=== PATIENT | male | born 1980 | race Caucasian/White ===

== ENCOUNTER 2024-04-28 12:46 | Emergency (ER) | payer OTHER, SELFPAY ==
[2024-04-28 12:54] VITALS: BP 138/93; PULSE 97; RESP 18; TEMP 36.9; O2SAT 96; BMI 27.0
--- NOTE | 2024-04-28 13:34 | XR_ITS ---
FINAL REPORT CLINICAL HISTORY: fall, injury pain in shoulder after fall COMPARISON: None FINDINGS: RIGHT SHOULDER: 3 views of the right shoulder were obtained. There is no acute fracture or dislocation. There is mild AC joint degenerative change. There is no soft tissue abnormality. IMPRESSION: No acute bony abnormality. Reviewed, Interpreted and Dictated by Brian Sosa III, MD Transcribed by Seda Augustin Authenticated and [facility]
--- NOTE | 2024-04-28 13:35 | HMH.EDGENADL ---
Discharge Plan Disposition Chief Complaint: PAIN Referrals Follow up/Referrals: Provider,Referral, [Primary Care Provider] - See instructions Clinical Impressions Clinical Impression: Injury of right shoulder Discharge ED Provider: Ramiro Ramos General Adult HPI General Chief complaint: PAIN Stated complaint: AO 1215 fall shoulder pain Time Seen by Provider: 04/28/24 13:29 Mode of Arrival: Ambulatory Source of Information: Patient Limitations: No Limitations Description of Symptoms (Recalled from ER Triage Doc. by RN): pt reports to ed c/o of right shoulder pain related to fall. pt states the pain is sharp and radiates to neck. pt states having a previous injury to right shoulder. Pt denies LOC History of Present Illness HPI narrative: Is a 43-year-old male present today with right shoulder injury. States his dog accidentally clipped his legs and he fell directly onto his right shoulder with his arm adducted. Pain is in the right shoulder no injuries elsewhere. Patient denies any syncope etc. Related Data Allergies Allergy/AdvReac Type Severity Reaction Status Date / Time meloxicam Allergy Verified 04/28/24 13:08 [facility] Disclaimer: The information contained in this section may have been updated after the patient was seen, as this information can be updated by other users. Social History Smoking Status: Current every day smoker alcohol intake: never current occupational status: other Travel in the last 8 weeks: None ROS Obtained: Yes All systems reviewed & no additional complaints except as documented Physical Exam General General appearance: alert and in no apparent distress Respiratory Respiratory exam: Present normal lung sounds bilaterally Cardiovascular Cardiovascular exam: Present regular rate and normal rhythm Extremities Exam Extremities exam: Present other (Right shoulder no significant soft tissue swelling there is tenderness on the anterior aspect of the shoulder itself normal range of motion but associated with pain axillary function is normal and sensorimotor function as well as median ulnar radial nerves) Neurological Exam Neurological exam: Present alert and oriented X3 Medical Decision Making Jus Inquiry Pt receiving controlled substance: No Vital Signs: 04/28/24 12:54 04/28/24 14:00 04/28/24 14:15 Temperature 98.4 F Temperature Source Oral Pulse Rate 77 78 Pulse Rate [Left Radial] 97 H Respiratory Rate 18 Blood Pressure 127/96 H 124/80 Blood Pressure [Right Arm] 138/93 H Blood Pressure Mean 106 94 Blood Pressure Mean [Right Arm] 108 02 Sat by Pulse Oximetry 96 94 L 92 L Oxygen Delivery Method Room Air Orders (Tests/Meds): ED MEDICATIONS Discontinued Medications Generic Name Dose Route Start Last Admin Trade Name Elza PRN Reason Stop Dose Admin Acetaminophen 1,000 mg 04/28/24 13:34 04/28/24 13:49 Acetaminophen 500mg Tab PO 04/28/24 13:35 1,000 mg ONCE ONE Administration Ibuprofen 800 mg 04/28/24 13:34 04/28/24 13:49 Ibuprofen 400 Mg Tablet PO 04/28/24 13:35 800 mg ONCE ONE Administration ORDERS Category Date Time Status Shoulder XR right miminum 2 views [XR shoulder RT min Exams 04/28/24 13:34 Taken 2V] Stat Medical Decision Narrative: 43-year-old presents today with a right shoulder injury after a fall. Tylenol and ibuprofen will be administered differential includes fracture dislocation separation, sprain etc. X-ray will be performed and will reassess. X-ray performed to person interpreted shows no evidence of a fracture dislocation or significant shoulder separation. He was offered a sling but declined this. He was advised to follow-up with orthopedic surgeon to take ibuprofen as needed and was discharged in stable condition. Critical Care Critical Care Time Critical Care Time: No
[2024-04-28] MEDS: ACETAMINOPHEN 500MG TAB 1000 MG PO (13:49)
[2024-04-28] MEDS: IBUPROFEN 400 MG TABLET 800 MG PO (13:49)
[2024-04-28 14:00] VITALS: BP 127/96; PULSE 77; O2SAT 94
[2024-04-28 14:15] VITALS: BP 124/80; PULSE 78; O2SAT 92
[2024-04-28 15:12] VITALS: BP 128/96; PULSE 89; RESP 18; TEMP 37; O2SAT 94
== END 2024-04-28 15:14 | disposition home or self-care (01) ==
PROVIDERS: Emergency Provider Student in an Organized Health Care Education/Training Program
DX: S49.91XA Unspecified injury of right shoulder and upper arm, initial encounter (principal); F17.210 Nicotine dependence, cigarettes, uncomplicated; W01.0XXA Fall on same level from slipping, tripping and stumbling without subsequent striking against object, initial encounter
CPT/HCPCS: 73030; 99283

== ENCOUNTER 2024-09-12 09:21 | Emergency (ER) | payer OTHER, SELFPAY ==
[2024-09-12 09:29] VITALS: BP 152/99; PULSE 81; RESP 16; TEMP 36.6; O2SAT 99; BMI 29.7
[2024-09-12] MEDS: METHYLPREDNISOLONE SOD SUCC 125MG VIAL 125 MG IM (09:38)
--- NOTE | 2024-09-12 09:39 | HMH.EDGENADL ---
Discharge Plan Disposition Patient Disposition: Home, Self-Care Prescriptions Prescriptions: New prednisone 10 mg tablet See Rx Instructions .ROUTE .COMPLEX Qty: 21 0RF Rx Instructions: Begin on September 13, 2024 : 40 mg daily days 1-3, 20 mg daily days 4-6, 10 mg daily days 7-9. Referrals Follow up/Referrals: Provider,Referral, [Primary Care Provider] - See instructions Activity Restrictions/Add. Instructions Additional Instructions/Restrictions: At this time it was felt you are safe to be discharged home. If new or worsening symptoms please do not hesitate to return the emergency department. Please take your medications as prescribed. Some people have success with oatmeal baths, cool wet compresses, ice packs, calamine lotion for symptomatic control. Clinical Impressions Clinical Impression: Contact dermatitis, Dermatitis due to plants, including poison ani, sumac, and oak Instructions Patient Instructions: DI for Skin Abscess Print Language Print Language: Georgian Discharge ED Provider: Michele Pat General Adult HPI General Chief complaint: Skin/Abscess/Foreign Body Stated complaint: swelling/redness/irritation in both eyes Time Seen by Provider: 09/12/24 09:24 Mode of Arrival: Ambulatory Source of Information: Patient Limitations: No Limitations Description of Symptoms (Recalled from ER Triage Doc. by RN): pt states he was weed eating Friday and thinks he got into poison oak. pt has periorbital edema and redness. History of Present Illness HPI narrative: Patient is a 43-year-old male without corrective vision who presents emergency department for evaluation of a rash. Patient was weed eating Friday when he believes he got into some poison oak or poison ani which she has experienced before. He rubbed his face and his lower abdomen went to the city which has resulted in a rash on these areas. No other acute complaints at this time. No reported vision changes. Related Data Previous Rx's ?Medication ?Instructions ?Recorded prednisone 10 mg tablet See Rx Instructions .Route 09/12/24 .COMPLEX #21 tabs Allergies Allergy/AdvReac Type Severity Reaction Status Date / Time meloxicam Allergy Other Verified 09/12/24 09:34 [facility] Disclaimer: The information contained in this section may have been updated after the patient was seen, as this information can be updated by other users. Social History (Updated 04/28/24 @ 14:54 by Ramiro Ramos MD) Smoking Status: Current every day smoker alcohol intake: never current occupational status: other Travel in the last 8 weeks: None ROS Obtained: Yes Systems reviewed as appropriate & no additional complaints except as documented Physical Exam General General appearance: alert and in no apparent distress Head Head exam: atraumatic, normocephalic and other (Mild periorbital edema bilaterally extending across his glabella with superimposed papules. No exophthalmos.) Eye Eye exam: Present normal appearance, PERRL and EOMI; Absent scleral icterus, conjunctival redness or conjunctival injection ENT ENT exam: Present mucous membranes moist Neck Neck exam: Present normal inspection Chest Chest inspection: Present normal inspection and symmetric chest wall rise Respiratory Respiratory exam: Absent respiratory distress Cardiovascular Cardiovascular exam: Present regular rate and normal rhythm Abdominal Exam Abdominal exam: Present soft Neurological Exam Neurological exam: Present alert Psychiatric Psychiatric exam: Present normal affect Skin Skin exam: Present warm, dry and rash (Scattered papules along across the inferior abdomen without significant swelling. Similar scattered papules clustered about a small area of the right wrist.) Medical Decision Making Medical Records Screening: Per USPSTF and CDC recommendations, given the prevalence of disease in our region, it is our hospital?s policy to screen for HIV and viral Hepatitis for all patients aged 18 and over and those with ongoing risk factors. Jus Inquiry Pt receiving controlled substance: No Vital Signs: 09/12/24 09:29 Temperature 98 F Temperature Source Oral Pulse Rate [Left] 81 Respiratory Rate 16 Blood Pressure [Right Arm] 152/99 H Blood Pressure Mean [Right Arm] 116 Blood Pressure Source [Right Arm] Automatic Cuff Blood Pressure Position [Right Arm] Sitting 02 Sat by Pulse Oximetry 99 Oxygen Delivery Method Room Air Orders (Tests/Meds): ED MEDICATIONS Generic Name Dose Route Start Last Admin Trade Name Freq PRN Reason Stop Dose Admin Methylprednisolone Sodium Succinate 125 mg 09/12/24 09:34 09/12/24 09:38 Methylprednisolone Sod Succ 125mg Vial IM 09/12/24 09:35 125 mg ONCE ONE Administration Medical Decision Narrative: In summary patient is a 43-year-old male past medical history described above who presents emergency department for evaluation of contact dermatitis. Given history and physical exam it is certainly possible that he has dermatitis secondary to Toxicodendron species. It may be other mediated contact dermatitis regardless patient has had it before and responded well to steroids. Given this shared decision making discussion was had and patient will be given intramuscular methylprednisolone and a 10-day taper of steroids as well as soothing therapy suggestions for symptomatic control, was given multiple return precautions and verbalized understanding. Critical Care Critical Care Time Critical Care Time: No
[2024-09-12 09:51] VITALS: BP 131/82; PULSE 90; RESP 16; TEMP 36.7; O2SAT 95
== END 2024-09-12 09:52 | disposition home or self-care (01) ==
PROVIDERS: Emergency Provider Emergency Medicine
DX: L25.5 Unspecified contact dermatitis due to plants, except food (principal); R21 Rash and other nonspecific skin eruption
CPT/HCPCS: 96372; 99282; J2919

== ENCOUNTER 2024-11-11 08:16 | Emergency (ER) | payer OTHER, SELFPAY ==
[2024-11-11 08:23] VITALS: BP 158/102; PULSE 85; RESP 18; TEMP 36.7; O2SAT 98; BMI 30.3
--- NOTE | 2024-11-11 08:24 | PC.NURSE ---
dr burns at bedside
[2024-11-11 08:30] VITALS: BP 145/103
--- NOTE | 2024-11-11 08:31 | HMH.EDGENADL ---
Discharge Plan Disposition Patient Disposition: Home, Self-Care Chief Complaint: Upper Respiratory Infection Prescriptions Prescriptions: No Action prednisone 10 mg tablet See Rx Instructions .ROUTE .COMPLEX Qty: 21 0RF Rx Instructions: Begin on September 13, 2024 : 40 mg daily days 1-3, 20 mg daily days 4-6, 10 mg daily days 7-9. Referrals Follow up/Referrals: Provider,Referral, MD [Primary Care Provider] - See instructions Activity Restrictions/Add. Instructions Additional Instructions/Restrictions: Call your family doctor to establish care for this visit to the emergency department and schedule follow-up within 48 hours to ensure improvement. If you have any worsening of your condition or any other concerning signs or symptoms, return to the emergency department or your primary care doctor for further evaluation. Take Tylenol 1000 mg every 6 hours (4 times daily) and ibuprofen 400 mg every 6 hours (4 times daily) as needed with food and water to prevent GI upset and kidney damage. Clinical Impressions Clinical Impression: Acute viral pharyngitis Print Language Print Language: Syriac Discharge ED Provider: Bladimir Pruitt General Adult HPI General Chief complaint: Upper Respiratory Infection Stated complaint: congestion sore throat fever chills Time Seen by Provider: 11/11/24 08:18 Mode of Arrival: Ambulatory Source of Information: Patient Limitations: No Limitations Description of Symptoms (Recalled from ER Triage Doc. by RN): has been around covid and strep and has cough and sore throat starting last night History of Present Illness HPI narrative: Please note that above description of symptoms, in this electronic medical record under categorization of recalled from ER triage doctor by RN are reflective of an initial nursing assessment, however, is not reflective of my full history and physical exam that was personally taken and clarified. Consequentially, this preceding description of symptoms, which may include the patient's categorized chief complaint in the EMR, do not reflect my personal clinical impression, and the ultimate description of history of present illness and patient stated complaints should be deferred to this section of the note. Unless stated otherwise or congruent with this section of the note, additional signs, symptoms, or incongruence should be interpreted as inaccurate with my clinical impression. Related Data Previous Rx's ?Medication ?Instructions ?Recorded prednisone 10 mg tablet See Rx Instructions .Route 09/12/24 .COMPLEX #21 tabs Allergies Allergy/AdvReac Type Severity Reaction Status Date / Time meloxicam Allergy Other Verified 09/12/24 09:34 [facility] Disclaimer: The information contained in this section may have been updated after the patient was seen, as this information can be updated by other users. Social History (Updated 04/28/24 @ 14:54 by Ramiro Ramos MD) Smoking Status: Current every day smoker alcohol intake: never current occupational status: other Travel in the last 8 weeks: None Have you lived/traveled outside [place] in past 30 days?: No Contact w/someone who lives/traveled outside [place] past 30 days?: No Exposure to someone with infectious disease in past 14 days?: No Do you have a fever (greater than 100.4 F or 38 C)?: Yes Have you tested positive for COVID-19: No Exposed to someone with COVID-19 in past 14 days?: No Do you have a sore throat?: Yes Do you have a cough?: No Do you have any weakness?: No Do you have any diarrhea?: No Are you experiencing any unusual bleeding?: No Do you have any muscle aches/pain?: No Do you have any abdominal pain?: No Are you experiencing loss of taste or smell?: No ROS Obtained: Yes All systems reviewed & no additional complaints except as documented Physical Exam General General appearance: alert and in no apparent distress Comment: Very clinically well Head Head exam: atraumatic and normocephalic Eye Eye exam: Present normal appearance, PERRL and EOMI ENT ENT exam: Present other (Pharyngeal erythema without exudate. Patient is status post tonsillectomy) Neck Neck exam: Present normal inspection, full ROM and trachea midline; Absent lymphadenopathy Respiratory Respiratory exam: Present normal lung sounds bilaterally; Absent respiratory distress, wheezes, stridor, accessory muscle use or prolonged expiratory phase Cardiovascular Cardiovascular exam: Present regular rate, normal rhythm and other (Pulses equal symmetric in upper and lower extremities) Abdominal Exam Abdominal exam: Present soft; Absent distention, tenderness or pulsatile mass Extremities Exam Extremities exam: Absent edema Neurological Exam Neurological exam: Present alert, oriented X3 and CN II-XII intact; Absent motor sensory deficit Skin Skin exam: Present warm and dry; Absent diaphoresis or erythema Medical Decision Making Medical Records Medical records reviewed: Yes I reviewed the patient's medical records. Screening: Per USPSTF and CDC recommendations, given the prevalence of disease in our region, it is our hospital?s policy to screen for HIV and viral Hepatitis for all patients aged 18 and over and those with ongoing risk factors. Jus Inquiry Pt receiving controlled substance: No Jus was queried for this patient: No Vital Signs: 11/11/24 08:23 11/11/24 08:30 Temperature 98.1 F Temperature Source Oral Pulse Rate [Right Radial] 85 Respiratory Rate 18 Blood Pressure 145/103 H Blood Pressure [Right Arm] 158/102 H Blood Pressure Mean 118 Blood Pressure Mean [Right Arm] 120 02 Sat by Pulse Oximetry 98 Oxygen Delivery Method Room Air Room Air Lab Data Lab Results 11/11/24 08:23: SARS-CoV-2 (PCR) Not detected, Influenza A Untype (PCR) Not detected, Influenza Type B (PCR) Not detected Orders (Tests/Meds): ED MEDICATIONS Discontinued Medications Generic Name Dose Route Start Last Admin Trade Name Freq PRN Reason Stop Dose Admin Dexamethasone 10 mg 11/11/24 08:48 Dexamethasone 4mg Tablet PO 11/11/24 08:49 ONCE ONE ORDERS Category Date Time Status Rapid PCR Covid and Flu A/B Stat Lab 11/11/24 08:23 Completed Medical Decision Narrative: 44-year-old male presenting with history of hypertension and tonsillectomy sore throat, rhinorrhea. Patient states that he has been feeling sick since yesterday, 11/10. States that today, he noticed that his voice was raspy and he had a little bit of a sore throat. No difficulty breathing, swallowing, pain with range of motion of neck, productive cough, fevers or chills or any other concerns. Still tolerating p.o. intake without issue. Multiple sick contacts with various viral illnesses. History obtained with patient. On arrival, patient very clinically well-appearing. Nontachypneic, nontachycardic, not hypoxemic. Speaking in full sentences. Ranging neck left and right, but down without issue. No lymphadenopathy. Pharyngeal erythema without exudate. Lungs are clear. Cardiac exam without any abnormalities. Differential includes viral sinusitis, viral pharyngitis, among others. Swab obtained, patient given 10 mg Decadron. Independent interpretation of swab demonstrates no COVID or flu. Feels likely represents some other viral illness not on the swab. Because patient at baseline without signs or symptoms of clinical decompensation, deemed appropriate for discharge. Results were relayed to patient who voiced understanding and were agreeable to outpatient management and follow up. I discussed my clinical impression with patient and answered all questions. At this time, the evidence for any other entities in the differential is insufficient to warrant any further testing or ED observation. This was explained as well. Advisory was given that persistent or worsening symptoms require further evaluation. I confirmed the understanding of this discussion. Senior [employer] Consultant disclaimer Much of this encounter note is an electronic powerhouse mechanic spoken language to printed text. Electronic powerhouse mechanic of the spoken language may permit errors. Although I have reviewed the note, some errors may still exist. Critical Care Critical Care Time Critical Care Time: No
[2024-11-11 08:32] LABS: Coronavirus 19, PCR Not Detected (NotDetected); Influenza A, PCR Not Detected (NotDetected); Influenza B, PCR Not Detected (NotDetected)
[2024-11-11] MEDS: DEXAMETHASONE 4MG TABLET 10 MG PO (09:28)
[2024-11-11 09:32] VITALS: BP 128/84; PULSE 80; RESP 18; TEMP 36.7
== END 2024-11-11 09:33 | disposition home or self-care (01) ==
PROVIDERS: Emergency Provider Emergency Medicine
DX: J02.9 Acute pharyngitis, unspecified (principal); R09.81 Nasal congestion; R50.9 Fever, unspecified; R05.9 Cough, unspecified; Z20.822 Contact with and (suspected) exposure to COVID-19; Z72.0 Tobacco use
CPT/HCPCS: 87636; 99283; J8540